=== PATIENT | male | born 1975 | race Caucasian/White ===

== ENCOUNTER 2025-05-04 09:37 | Emergency (ER) | payer OTHER, SELFPAY ==
[2025-05-04 10:02] VITALS: BP 165/94
--- NOTE | 2025-05-04 10:54 | ED.GENMED ---
History of Present Illness
General
Chief Complaint: Breathing Problem
Source: patient
Exam Limitations: none
Time Seen by Provider: 05/04/25 10:50
History of Present Illness
History of Present Illness:
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 Patient woke up this morning with a mild headache, body aches, and some dyspnea.
He felt worsening shortness of breath while at work so decided to go to urgent care. He went to urgent care and had an EKG and blood work which were normal. He was told to go to the ED to obtain a D-dimer test. Patient is currently asymptomatic
and he states his dyspnea has resolved. He denies any calf pain, leg swelling, chest pain. He traveled to [place] last week which was a 7 [address] ride.
Phy Exam
General Physical Exam
General Presentation: well appearing and no apparent distress
General Skin: warm and dry
General Habitus: normal
General Mental: alert
General Hydration: appears well hydrated
ENT Exam
ENT Exam: normocephalic
Cardiovascular Exam
Cardiovascular Exam: regular rate/rhythm, no edema and no murmur
Pulmonary Exam
Pulmonary Exam: lungs clear, no respiratory distress, no rales, no crackles, no rhonchi and no wheezing
Neurological Exam
Neurological Exam: alert
Tracy Coma Scale
Eye Opening: Spontaneous
Verbal Response: Oriented
Motor Response: Obeys Commands
GCS Total Score: 15
Skin Exam
Skin Exam: normal color and warm/dry
Psychiatric Exam
Psychiatric Exam: normal mood/affect
Scores
Heart Failure Risk
Heart Failure Risk Score: Not Applicable
Course
Orders/Labs/Results
Orders:
Orders
05/04/25 10:08
EKG [Electrocardiogram (*1)] Urgent
Reason for Study: Shortness of Breath
EKG- Treatment ONCE
05/04/25 11:04
Cardiac Monitoring- Treatment ONCE
05/04/25 11:24
Complete Blood Count/With Diff Urgent
Comprehensive Metabolic Panel Urgent
D-Dimer Urgent
Troponin I Urgent
05/04/25 11:55
CR Chest - 2 Views Urgent
Comment:
Reason For Exam: SOB
Abnormal Lab Results
05/04/25
11:24
MCH 32.2 H pg
(27.0-31.0)
Absolute Lymphs (auto) 1.1 L 10^3/uL
(1.2-3.4)
Neutrophils % 78.0 H %
(42.2-75.2)
Lymphocytes % 13.7 L %
(20.5-51.1)
Chloride 109 H mmol/L
(98-107)
Glucose 115 H mg/dl
(70-99)
05/04/25 11:24
05/04/25 11:24
Vital Signs
Initial and Last Documented VS:
Initial Vital Signs
Temp Pulse Resp BP Pulse Ox
98.4 F 65 18 165/94 100
05/04/25 10:02 05/04/25 10:02 05/04/25 10:02 05/04/25 10:02 05/04/25 10:02
Last Documented Vital Signs
Temp Pulse Resp BP Pulse Ox
98.5 F 64 17 124/75 100
05/04/25 11:26 05/04/25 12:15 05/04/25 12:15 05/04/25 13:25 05/04/25 13:30
MDM/Problems Addressed
Differential Diagnosis Includes:
49yoM here with SOB that started this morning. Recent travel to [place] last week. Sent in by urgent care for D-dimer. Symptoms now resolved. Oxygen saturation 100% on room air. He is well appearing in no distress and exam is reassuring.
Differential diagnosis includes but is not limited to: Viral illness, pneumonia, less likely PE, less likely ACS
Initial ED plan: Check cardiac labs, D-dimer, and EKG. Will obtain CT vs. chest x-ray depending on D-dimer results.
*Pulse Oximetry
Patient hypoxic: no (100% on room air)
*EKG
Interpreted by ED Provider?: Yes
EKG Intrepretation Date: 05/04/25
Heart Rate: 55
Rate: bradycardiac
Rhythm: sinus
[place]: normal axis
Interval: normal interval and first degree heart block
QRS Pattern: normal QRS
*Critical Care Note
Total Time (30-74mins, 75-104mins- exclusive of procedures): Not Applicable
Update Note
Update Note:
Labs overall unremarkable. EKG shows NSR without ischemic changes and troponin WNL. D-dimer normal making PE very unlikely. CXR obtained which appears normal per my interpretation. Patient remains asymptomatic on reassessment and oxygen 100% on room
air. No indication for hospitalization. Advised f/u with PCP and ED return precautions reviewed. Patient in agreement with plan and was discharged in stable condition.
ED Attending Note
-
Portions of this chart may have been created with voice recognition software.� Occasional wrong word or��sound alike� substitutions may have occurred due to the inherent limitations of voice recognition software.
Discharge Plan
Departure
Patient Disposition: Home (Routine Discharge)
Date of Disposition: 05/04/25
Time of Disposition: 13:27
Patient with high blood pressure during this ER visit?: Yes
Discharge Problem:
Shortness of breath
Instructions: Shortness of Breath (Dyspnea) (DC)
Prescriptions:
No Action
No Current Medications
0
Referrals:
Benjamin Kovacs MD [Family Provider, Family Practice]
Activity Restrictions/Additional Instructions:
Please follow-up with your family doctor. Return to the ER with any new or worsening symptoms.
Interventions
Interventions:
*Risk Screen - Suicide Last Done: 05/04/25 10:02
*General Assessment Last Done: 05/04/25 10:02
*Neglect/Abuse Screening Last Done: 05/04/25 10:02
*ED- Fall Risk Assessment Last Done: 05/04/25 11:26
*ED COVID-19 Vaccine History Last Done: 05/04/25 10:02
*Nursing Disposition Last Done: 05/04/25 13:39
ED- Cardiac Assessment Last Done: 05/04/25 11:26
ED- Pulmonary Assessment Last Done: 05/04/25 11:26
Discharge Date and Time
Discharge Date/Time: 05/04/25 13:42
Print Language: ARGENT[place]
[2025-05-04 11:23] VITALS: BMI 26.7
[2025-05-04 11:26] VITALS: BP 135/94
[2025-05-04 11:31] LABS: % Basophils 0.5 % (0-2); % Immature Granulocytes 0.4 % (0-0.5); % Lymphocytes 13.7 % (20.5-51.1); % Monocytes 5.4 % (1.7-9.3); Absolute Eosinophils 0.2 10^3/uL (0-0.7); Absolute Lymphocytes 1.1 10^3/uL (1.2-3.4); Absolute Monocytes 0.5 10^3/uL (0.1-0.6); Absolute Neutrophils 6.5 10^3/uL (1.4-6.5); Hematocrit 42.8 % (39.0-52.0); Hemoglobin 15.5 g/dL (13.0-18.0); Mean Corp Hgb Conc. 36.2 g/dL (33.0-37.0); Mean Corpuscular Hgb 32.2 pg (27.0-31.0); Mean Corpuscular Volume 88.8 fL (80.0-94.0); Mean Platelet Volume 9.2 fL (7.4-10.4); Nucleated Red Blood Cells % 0 % (-); Platelet Count 185 10^3/uL (130-400); Red Blood Cell Count 4.82 10^6/uL (4.70-6.10); Red Cell Dist. Width 11.7 % (11.5-14.5); White Blood Cell Count 8.3 10^3/uL (4.8-10.8)
[2025-05-04 11:46] LABS: D-Dimer < 0.27 ug/mlFEU (0.00-0.50)
[2025-05-04 11:56] LABS: Troponin I < 0.012 ng/ml
[2025-05-04 11:59] LABS: ALT (SGPT) 44 U/L (0-50); AST (SGOT) 29 U/L (17-59); Albumin 4.8 g/dl (3.5-5.0); Alkaline Phosphatase 58 U/L (38-126); Blood Urea Nitrogen 18 mg/dl (9-20); Calcium 9.6 mg/dl (8.4-10.2); Carbon Dioxide 27 mmol/L (22-30); Chloride 109 mmol/L (98-107); Estimated Creatinine Clearance > 125 ml/min; Glucose 115 mg/dl (70-99); Potassium 4.7 mmol/L (3.5-5.1); Sodium 141 mmol/L (135-145); Total Bilirubin 0.9 mg/dl (0.2-1.3); Total Protein 7.5 g/dl (6.3-8.2); eGFR > 60.00
[2025-05-04 12:00] VITALS: BP 138/81
[2025-05-04 13:25] VITALS: BP 124/75
== END 2025-05-04 13:42 | disposition home or self-care (01) ==
LOC: EMR 09:37
PROVIDERS: Physician Assistant; EMERGENCY PHYSICIAN Emergency Medicine; FAMILY PHYSICIAN Family Medicine
DX: R06.02 Shortness of breath (principal); E78.5 Hyperlipidemia, unspecified; J45.909 Unspecified asthma, uncomplicated; Q98.4 Klinefelter syndrome, unspecified; Z79.890 Hormone replacement therapy
CPT/HCPCS: 99285; 71046; 80053; 84484; 85025; 85379; 93005